=== PATIENT | female | born 1955 | race Caucasian/White ===

== ENCOUNTER 2017-04-20 13:24 | Inpatient (IN) | payer MEDICAID ==
[~2017-04-20] VITALS: Ht 172.7 cm; Wt 99.8 kg
--- NOTE | ~2017-04-20 | OR ---
PATIENT'S NAME: ADITI PRICE [facility] AGE: 62 Y [address] ROOM: [place] [address] LOCATION: GICU ADMIT DATE: 04/20/2017 OR/Procedure Report DISCHARGE DATE: FAMILY PHYSICIAN: PHYSICIAN, UNKNOWN ATTENDING PHYSICIAN: Matt Quezada SURGEON: Dylon Bello MD UTILIZATION REVIEW COORDINATOR: DATE OF PROCEDURE: 04/20/2017 PREOPERATIVE DIAGNOSIS: Severe head injury along with a small left acute subdural hematoma. POSTOPERATIVE DIAGNOSIS: Severe head injury along with a small left acute subdural hematoma. OPERATION PROPOSED AND PERFORMED: 1. Left frontal ventriculostomy with ICP monitoring. 2. Suturing of right posterior parietal laceration. DESCRIPTION OF PROCEDURE: Under general anesthesia, the left frontal region was shaved, prepped, and draped in the usual fashion. A linear incision was then carried out about 3 fingerbreadths from the midline just anterior to the coronal sutures. Pericranium was reflected. A small self-retaining retractor was then used for retraction. A twist-drill hole was then carried out at this site. Next, a Co-Workman ICP monitor with a ventricular catheter was then passed through a separate stab wound to the incision we had made and the ventricular catheter was then passed into the lateral ventricle and the initial pressure was between 6 to 9 cm of water. The wound was irrigated with bacitracin irrigation and the linear incision was closed in a single layer and the catheter was kept in position by using a 3-0 Nurolon and using it to twirl it around the catheter and back to the scalp. After this was done, we then directed our attention to the ragged-edged complex laceration of the scalp. This laceration was about 1 inch long. The area was cleaned, irrigated with bacitracin irrigation, and we removed the subgaleal hematoma that was present. After this was done, we then sutured the laceration using 3-0 Nurolon. The patient tolerated the procedure well and was taken back to the intensive care unit. DYLON BELLO MD AEB/modl PATIENT'S NAME: ADITI PRICE [facility] AGE: 62 Y [address] ROOM: [place] [address] LOCATION: GICU ADMIT DATE: 04/20/2017 OR/Procedure Report DISCHARGE DATE: FAMILY PHYSICIAN: PHYSICIAN, UNKNOWN ATTENDING PHYSICIAN: Matt Quezada /[id number] d: 04/21/17 0154 t: 05/03/17 1613, OPERATIVE SUMMARY
--- NOTE | ~2017-04-20 | CON ---
PATIENT'S NAME: ADITI PRICE [facility] AGE: 62 Y [address] ROOM: [place] [address] LOCATION: [facility] ADMIT DATE: 04/20/2017 Consultation DISCHARGE DATE: FAMILY PHYSICIAN: PATRICIA ESQUIVEL MD ATTENDING PHYSICIAN: Matt Quezada REFERRING PHYSICIAN: Laure Zamora MD CHIEF COMPLAINT: Subdural hematoma. HISTORY OF PRESENT ILLNESS: The patient is a 62-year-old female with history of COPD, hypertension, stroke, and cerebral aneurysm bleed, status post clipping with residual right- sided deficit, who presents here with fall and subdural hematoma and GCS of 8. The patient was initially admitted in ICU, intubated, and had left frontal ventriculostomy with ICP monitoring. The patient was subsequently extubated and now in stable condition. The patient has baseline aphasia and apraxia. Most of the story was gathered from chart and the patient's daughter. According to the patient's daughter, the patient has had aneurysm bleed in 2009 with residual right-sided deficit and hydrocephalus, status post FILLER IN shunt placement. The patient also has a history of multiple CVAs. According to daughter, the patient is aphasic and apraxic. The patient was able to walk baseline before she came here. The patient had a fall and was found to be unresponsive and was brought here and was found to have a GCS of 8 and left subdural hematoma. The patient is currently stable and is being transferred out of ICU to NTU. Left frontal ventriculostomy with ICP monitoring has been removed. MEDICAL HISTORY: 1. Ruptured aneurysm with clipping. 2. Hypertension. 3. CVA. SURGICAL HISTORY: FILLER IN shunt placement. FAMILY HISTORY: Brother has leukemia. SOCIAL HISTORY: The patient was a former smoker. The patient lives with a caregiver, who is her daughter. MEDICATIONS: Please see MAR. PATIENT'S NAME: ADITI PRICE [facility] AGE: 62 Y [address] ROOM: [place] [address] LOCATION: [facility] ADMIT DATE: 04/20/2017 Consultation DISCHARGE DATE: FAMILY PHYSICIAN: PATRICIA ESQUIVEL MD ATTENDING PHYSICIAN: Matt Quezada REVIEW OF SYSTEMS: Unobtainable due to the patient's mentation. PHYSICAL EXAMINATION: VITAL SIGNS: Temperature 97.7, blood pressure 159/72, heart rate 99, respiratory rate 20, and saturating 95% on room air. GENERAL APPEARANCE: The patient is lying on bed and being fed food by daughter. HEENT: Head: Surgical sutures present. Clean, dry, and intact. Eyes: No eye discharge. External ocular muscles intact. Nose: No nasal discharge. Mouth: Moist oral mucosa. Ears: No ear discharge. CHEST: Clear to auscultation bilaterally. No rhonchi, wheezing, and rales. HEART: Regular rate and rhythm. No murmurs, rubs, or gallops. ABDOMEN: Soft, nontender, and nondistended. Bowel sounds present. SKIN: Warm to touch. COMPOSITION BOARD PRESS OPERATOR: The patient is alert and awake. However, the patient is aphasic with right-sided weakness. The patient is able to move left side. MUSCULOSKELETAL: No obvious effusion was noted. DATA: Hemoglobin of 12.3, white blood cell count was 6.3, and platelet of 225. Creatinine of 0.7, BUN of 5, sodium 140, and potassium of 4. ASSESSMENT AND PLAN: 1. Chronic obstructive pulmonary disease, stable. Continue bronchodilator. 2. Hypertension. Stable. Continue current medication with Bumex and QAMARKER] p.r.n. We will follow blood pressure closely. 3. Subdural hematoma, stable. Treatment per primary team. 4. History of cerebrovascular accident. The patient currently is not on statin or aspirin. Aspirin is held due to bleeding. I will add Lipitor on her home medication list. The patient might benefit from aspirin if bleeding risk is low. 5. Physical deconditioning. PT/OT, then hopefully to be discharged to our acute rehab when the patient is ready. Greater than 30 minutes was spent on patient care. Thank you very much for involving us in the patient's care. ISHMAEL GARCIA MD PATIENT'S NAME: ADITI PRICE [facility] AGE: 62 Y [address] ROOM: [place] [address] LOCATION: [facility] ADMIT DATE: 04/20/2017 Consultation DISCHARGE DATE: FAMILY PHYSICIAN: PATRICIA ESQUIVEL MD ATTENDING PHYSICIAN: Matt Quezada/marc /[id number] d: 04/24/17 0039 t: 04/24/17 1545, CONSULTATION REPORT
--- NOTE | ~2017-04-20 | HP ---
PATIENT'S NAME: ADITI PRICE [facility] AGE: 62 Y [address] ROOM: [id number] [place], [place] [address] LOCATION: [facility] ADMIT DATE: 04/20/2017 History & Physical DISCHARGE DATE: FAMILY PHYSICIAN: PHYSICIAN, UNKNOWN ATTENDING PHYSICIAN: Matt Quezada DATE OF SERVICE: CHIEF COMPLAINT: Altered mental status from fall. HISTORY OF PRESENT ILLNESS: The patient is a 62-year-old female, who arrived by helicopter as a code trauma. She apparently was standing when she fell backwards and struck the back of her head. The reports were that she was unresponsive. There was some mention of a GCS of 8, though we did not have any details regarding that. She was intubated at an outside hospital, and then flown by helicopter here. The patient was unresponsive during transport, but did receive paralytics as well as Versed and fentanyl. She had a known history of a TEACHING FELLOW shunt, and has had a previous stroke. No other past medical history was obtainable. On arrival here, the patient was unresponsive and intubated. No movement was noted. REVIEW OF SYSTEMS: Unobtainable. PHYSICAL EXAMINATION: VITAL SIGNS: Blood pressure was 167/102, pulse was 84, she is being bag ventilated, and her sats are 98%. HEENT: Pupils are 4 mm, equal, and sluggishly reactive. There was no conjunctival injury or periorbital edema. There were no signs of midface trauma. Nose was straight without septal hematoma. The oropharynx has an endotracheal and orogastric tube in place. Mandible does not show any evidence of injury. External ears are unremarkable. Ear canals are clear bilaterally. There was no hemotympani. There was a 3-cm hematoma on the right posterior scalp, was boggy underneath this from blood. There was some skin trauma, but is more of a crush/abrasion type injury than a true laceration. There was some bleeding from it. There was some surrounding abrasion. Her TEACHING FELLOW shunt is palpable in the subcutaneous tissue. NECK: There is a cervical collar in place. The trachea was midline. There were no palpable step-offs. There was no obvious neck injury. CHEST: Lungs are clear to auscultation. There is no crepitus or rib fractures. There was some superficial abrasion to the right posterior shoulder. HEART: Regular rate and rhythm. There are no obvious peripheral signs of chest trauma otherwise. PATIENT'S NAME: ADITI PRICE [facility] AGE: 62 Y [address] ROOM: [address] [place] [id number] LOCATION: [facility] ADMIT DATE: 04/20/2017 History & Physical DISCHARGE DATE: FAMILY PHYSICIAN: PHYSICIAN, UNKNOWN ATTENDING PHYSICIAN: Matt Quezada ABDOMEN: Soft. There are some well-healed incisions, but no signs of acute injury. There are good bowel sounds. It is not distended. There is no bruising. PELVIS: Stable. Femoral pulses are weakly palpable. GENITOURINARY: External female genitalia were unremarkable. Urine is grossly clear. MUSCULOSKELETAL: Upper and lower extremities, the patient has weakly palpable distal pulses. There was no swelling. There was no evidence of fracture or deformity. No lacerations or abrasions or bruising was noted. DIAGNOSTIC STUDIES: The patient remained stable during our evaluation. She was taken to CT scan, where she was noted to have markedly enlarged ventricles, as well as significant old stroke and changes related to this. ASSESSMENT AND PLAN: A 62-year-old female with history of stroke and TEACHING FELLOW shunt placed now with significantly altered mental status following a fall. She is unresponsive at this point. Dr. Zamora has been consulted. I see no signs of other obvious injuries. We will proceed based on Dr. Zamora's recommendations. We were with the patient for approximately 1 hour in continual contact until she was taken to the Operating Room. MD SHIVA MARTINEZ/marc /[id number] D: 328 T: 004 HISTORY & PHYSICAL
--- NOTE | ~2017-04-20 | CON ---
PATIENT'S NAME: ADITI PRICE [facility] AGE: 62 Y [address] ROOM: [place] [address] LOCATION: GICU ADMIT DATE: 04/20/2017 Consultation DISCHARGE DATE: FAMILY PHYSICIAN: PATRICIA ESQUIVEL MD ATTENDING PHYSICIAN: Matt Quezada REFERRING PHYSICIAN: Laure Zamora MD A consult for Laure Zamora MD. HISTORY OF PRESENT ILLNESS: This is a 62-year-old lady, who is referred to rehab evaluation. She is status post intracranial pressure monitor placement on 04/20/2017 after she suffered severe head injury with a small left acute subdural hematoma. It was done per Dr. Pang. Details on record on 04/20/2017. The intracranial pressure monitor has been discontinued today early on. As per history, she fell backwards and struck her head and became unresponsive. She was initially at a [place] Coma Scale of 8. She has as per history per her daughter and I have nothing to confirm it that she had a clipping of the artery aneurysm done years back and she recovered well with right-sided weakness at that time. She was walking as per her daughter statement unaided, but she needs help and I do not have a clear description from the daughter how much she was requiring help. Seemingly, the daughter as per her statement she has her job. She is at the present time in ICU, able to open her eyes, responds on and off. However, she seems to be markedly obtunded. She is not attending to the right side. She has no volitional movement that I could detect in the right upper and lower extremities. She is gagging, but she is neglecting the right side quite a bit and is not attending to the right side with visual cut on the right temporal region. She is breathing on her own. PHYSICAL EXAMINATION: VITAL SIGNS: Vitals are as follows. Blood pressure 151/84, temperature 98.4, pulse 84, and respiratory rate 18. She is 5 feet and 6 inches and weighs 104.0 kg. MEDICATIONS: She is on: PATIENT'S NAME: ADITI PRICE [facility] AGE: 62 Y [address] ROOM: [place] [address] LOCATION: [facility] ADMIT DATE: 04/20/2017 Consultation DISCHARGE DATE: FAMILY PHYSICIAN: PATRICIA ESQUIVEL MD ATTENDING PHYSICIAN: Matt Quezada 1. Albuterol. 2. Zofran. 3. Neurontin. 4. Protonix. 5. Paxil. 6. Fentanyl. 7. Propofol. 8. Glucagon. 9. Dextrose. 10. Glucose. 11. Insulin regular, aggressive scale. 12. Phenylephrine. 13. Labetalol. 14. NS 0.9%. 15. KCL. 16. Tylenol. 17. Mannitol. ASSESSMENT AND PLAN: We will start on bedside PT/OT and speech. Please see the orders. We need to do a modified barium swallow for the time being to see how safe she is swallowing. I will continue to follow and I feel that she needs to be on intensive rehab for about 3 to 4 weeks, aiming to discharge on modified independence, and follow on outpatient basis. All the above was explained to the daughter. She verbalized understanding and agreement. KAREN TIWARI MD WMS/modl /[id number] d: 04/22/172122 t: 04/23/17 1241, CONSULTATION REPORT
--- NOTE | ~2017-04-20 | DS ---
PATIENT'S NAME: JESSICA PRICE [facility] AGE: 62 Y [address] ROOM: [place] [address] LOCATION: GNTU ADMIT DATE: 04/20/2017 Discharge Summary DISCHARGE DATE: 05/01/2017 FAMILY PHYSICIAN: Medhat Bishop MD ATTENDING PHYSICIAN: Matt Quezada DIAGNOSES: 1. A 62-year-old female, status post fall on stairs at home. 2. Traumatic brain injury with subdural hemorrhage. 3. History of stroke. 4. History of AIRBRUSH ARTIST shunt. SUMMARY: Jessica Price is a 62-year-old female, who arrived at [facility] as a trauma code by helicopter. The patient has a prior history of stroke which resulted in weakness. She was able to get around at home doing minimal activities. The patient was on her front steps when she fell backwards striking the back of her head. The reports were that she was unresponsive at the scene. She had a GCS of 8. She was intubated at an outside hospital and flown to [facility] via helicopter. Please see Dr. Quezada's the history and physical for specifics on evaluation. CT of the cervical spine showed no fractures. CT of the head showed a large hematoma of the right parietal scalp. Areas of bilateral chronic encephalomalacia, probably from prior infarct. No mass effect or acute ischemic infarct was noted. There was a left parietal subdural hematoma that was acute. The patient was taken to the operating room by Dr. Zamora for a left frontal ventriculostomy with ICP monitoring and suturing of a right posterior parietal laceration. The patient was then admitted to the intensive care unit under the care of Dr. Quezada. The neuro team managed her care initially. She continued to be sedated and intubated on the morning of April 21, but was subsequently extubated. PT, OT, and Speech Therapy were consulted. Dr. Irving was consulted for consideration of rehab. On April 23, the patient was transferred to the neuro trauma unit. Her [place]-J collar was removed per Dr. Zamora's order. Her ventriculostomy was discontinued. She was started on pureed diet with thin liquids. The patient was monitored for several days for oral intake. She subsequently had a PEG tube placed by Dr. Rasmussen on April 30 due to poor p.o. intake. The patient continued to work with therapies, and it was felt that the patient was ready for discharge to a swing bed on May 01. DISCHARGE INSTRUCTIONS: Include a followup CT without contrast in 2 weeks with the images to be pushed to the [facility] PAC system for Dr. Zamora to review. She will continue with diet as tolerated with Ensure 240 mL per PEG q.i.d. with 75 mL water flush before and after tube feedings. Weightbearing as tolerated. Continue PT, OT, and Speech Therapy. PATIENT'S NAME: JESSICA PRICE [facility] AGE: 62 Y [address] ROOM: [place] [address] LOCATION: [facility] ADMIT DATE: 04/20/2017 Discharge Summary DISCHARGE DATE: 05/01/2017 FAMILY PHYSICIAN: Medhat Bishop MD ATTENDING PHYSICIAN: Matt Quezada DISCHARGE MEDICATIONS: 1. Bumex 1 mg p.o. every 48 hours. 2. Paxil 10 mg p.o. daily. 3. Amitriptyline 100 mg p.o. q.h.s. 4. Neurontin 300 mg p.o. 3 times daily. 5. Tylenol liquid 650 via PEG every 4 hours as needed. 6. Lortab elixir 5-15 mL every 4 hours as needed for pain. 7. Ativan 0.5 mg every night at bedtime for anxiety. For specifics on day-to-day care, please refer to the hospital chart. JAXSON MOTA PA-C FOR MD JOE MARTINEZ/marc /[id number] d: 05/05/17236 t: 05/05/17 0919, DISCHARGE SUMMARY
--- NOTE | ~2017-04-20 | CON ---
PATIENT'S NAME: ADITI PRICE [facility] AGE: 62 Y [address] ROOM: [id number] [place], [place] [address] LOCATION: GICU ADMIT DATE: 04/20/2017 Consultation DISCHARGE DATE: FAMILY PHYSICIAN: PHYSICIAN, UNKNOWN ATTENDING PHYSICIAN: Matt Quezada REFERRING PHYSICIAN: Laure Zamora MD HISTORY OF PRESENT ILLNESS: This 62-year-old lady was transferred here from the hospital admitted through the emergency room. She apparently fell and landed on her head, and consequent to that, she became unresponsive, and as a result, she was intubated and ventilated. 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 She had multiple strokes and had a CARPET INSPECTOR shunt put in from what I presume was hydrocephalus secondary to the subarachnoid hemorrhage. PAST MEDICAL HISTORY: Apart from what we were able to gather from the fact that we saw clips in the CT scan of the head which indicated that she had an aneurysm rupture that was clipped and the evidence of hypodense lesions in both hemispheres marked in the left hemisphere with both frontal as well as temporal and parietal occipital regions involved. There was really not much as we could get on the past medical history because there was nothing visible. SOCIAL HISTORY/REVIEW OF SYSTEMS: We could not get that because of her neurological status. PHYSICAL EXAMINATION: GENERAL: In the emergency room, she is 5 feet 8 inches tall, 111 kg in weight. Blood pressure was 150/90, the pulse was 93, respirations were 27 on the ventilator. CHEST/GI: As far as the chest and abdominal examinations are concerned, see Dr. Quezada' note. NEUROLOGICAL: She was completely unresponsive. There was no response to pain. Painful stimuli. The pupils were 3 mm . They both reacted sluggishly to light. HENT: She had a laceration in the posterior parietal region with underlying subgaleal hematoma and shunt pumps and feels adequately. IMAGING DATA: I did review the CT scan of the brain. The CT scan of the brain showed area of low density involving the left hemisphere with accompanying asymmetric dilatation of the ventricle on that left side which was much bigger, much larger than the ventricle on the right. In addition, there was a low-density area in the right frontal region, and there was definite ventriculomegaly with PATIENT'S NAME: ADITI PRICE [facility] AGE: 62 Y [address] ROOM: [id number] [place], [place] [address] LOCATION: [facility] ADMIT DATE: 04/20/2017 Consultation DISCHARGE DATE: FAMILY PHYSICIAN: PHYSICIAN, UNKNOWN ATTENDING PHYSICIAN: Matt Quezada prominent subarachnoid spaces. In addition, however, she had a small acute subdural hematoma in the left posterior parietal region without any significant mass effect. She also had a CT scan of the cervical spine that did not show any fractures. She had a CT scan of the lumbar spine. CT scan of the chest, abdomen, and pelvis did not show any abnormality. IMPRESSION: Severe head injury. The original [employer] coma score was put at 8, and in light of nonresponsive to painful stimuli, which could be secondary to residual effect of the that she had, I feel that to go ahead and put in a pressure monitor intra-ventricle, and take it from there. Postop, we will hold off sedation and see especially the ICP stays within the normal range with eventually aim of extubating her. In the meantime, we will go ahead and treat as a severe head injury. MD FERNANDEZ WANG/marc /[id number] d: 04/21/17 0142 t: 05/03/17 1610, CONSULTATION REPORT
--- NOTE | ~2017-04-20 | OR ---
PATIENT'S NAME: ADITI PRICE [facility] AGE: 62 Y [address] ROOM: [address] [address] LOCATION: [facility] ADMIT DATE: 04/20/2017 OR/Procedure Report DISCHARGE DATE: FAMILY PHYSICIAN: PATRICIA ESQUIVEL MD ATTENDING PHYSICIAN: Matt Quezada SURGEON: Matt Quezada MD BREWERY CELLAR WORKER: DATE OF PROCEDURE: 04/30/2017 PREOPERATIVE DIAGNOSIS: Altered mental status with inadequate oral intake. POSTOPERATIVE DIAGNOSIS: Altered mental status with inadequate oral intake. PROCEDURE PERFORMED: EGD with PEG placement. ANESTHESIA: MAC with local. SPECIMEN: None. REASON FOR PROCEDURE: The patient is a 62-year-old female, who has a previous history of significant stroke, recently she fell, and had a closed head injury. She has had altered mental status and her swallowing has not been great, she is taking some orally but not enough to maintain hydration or nutritional support. It was decided to proceed with PEG placement. PROCEDURE IN DETAIL: The patient was taken to the endoscopy suite and placed in a supine position with the head elevated slightly. Anesthesia provided sedation. A bite block was placed between her teeth. The gastroscope was advanced through the bite block and the esophagus was intubated under direct visualization. The esophagus was not dilated. There was no strictures or masses. The stomach and duodenum were normal. Transillumination and pressure on the abdominal wall were used to localize an area for PEG placement. This was then prepped with ChloraPrep and sterilely draped. Lidocaine was infiltrated into the area. A small stab incision was made. This was essentially in the previous scar from her last PEG placement. A needle was then advanced through the abdominal wall and visualized entering the gastric mucosa. A guidewire was advanced through the needle. The guidewire was grasped with a snare and carefully withdrawn through the esophagus and oropharynx. The PEG tube was advanced over the guidewire and pulled into position. A bolster was used to hold this in place. POSTPROCEDURE PLAN: The patient will be sent to recovery and then back to her room. We will start tube feeds later today. She can resume her previous diet. PATIENT'S NAME: ADITI PRICE [facility] AGE: 62 Y [address] ROOM: [address] [address] LOCATION: [facility] ADMIT DATE: 04/20/2017 OR/Procedure Report DISCHARGE DATE: FAMILY PHYSICIAN: PATRICIA ESQUIVEL MD ATTENDING PHYSICIAN: Matt Quezada MD SHIVA MARTINEZ/modl /[id number] d: 04/30/17926 t: 05/04/17 1400, OPERATIVE SUMMARY
[2017-04-20 14:10] LABS: BICARBONATE 22.9 mmol/L (18.0-23.0); PCO2 48 mmHg (35-45); PO2 230 mmHg (80-90); SODIUM 141 mEq/L (135-145)
[2017-04-20 14:18] LABS: BILIRUBIN URINE NEGATIVE (NEGATIVE); BLOOD URINE 10 /UL (NEGATIVE); GLUCOSE URINE NEGATIVE (NEGATIVE); KETONE URINE NEGATIVE (NEGATIVE); LEUKOCYTES URINE NEGATIVE /UL (NEGATIVE); NITRITE URINE NEGATIVE (NEGATIVE); PROTEIN URINE NEGATIVE (NEGATIVE); SPEC GRAVITY URINE 1.015 (1.003-1.035); UROBILINOGEN URINE NORMAL (NORMAL)
[2017-04-20 14:20] LABS: BASOPHIL % 0.3 %; EOSINOPHIL # 0.1 K/uL (0.0-0.5); EOSINOPHIL % 0.8 %; HEMATOCRIT 43.7 % (33.0-46.0); HEMOGLOBIN 14.4 g/dL (10.0-15.0); IMMATURE GRANULOCYTE # 0.1 K/uL (0.0-0.3); IMMATURE GRANULOCYTE % 0.7 %; LYMPHOCYTE # 1.4 K/uL (0.8-4.0); LYMPHOCYTE % 11.6 %; MCH 32.5 pg (27.0-34.0); MCV 98.6 fl (83.0-98.0); MONOCYTE # 0.5 K/uL (0.0-1.0); MPV 9.6 fl (9.4-12.4); NEUTROPHIL # (ANC) 9.7 K/uL (1.8-7.8); NEUTROPHIL % 82.6 %; NRBC % 0 /100WBC (0-0.00); PLATELET COUNT 256 K/uL (150-450); RBC 4.43 M/uL (3.50-5.50); RDW-CV 12.4 % (11.9-14.6); WBC 11.7 K/uL (4.0-11.0)
[2017-04-20 14:23] LABS: COLOR URINE STRAW (YELLOW); TURBIDITY URINE CLEAR (CLEAR)
[2017-04-20 14:28] LABS: BACTERIA URINE NEGATIVE (NEGATIVE); RBC URINE 0-2 #/HPF (NEGATIVE); WBC URINE NEGATIVE #/HPF (NEGATIVE)
[2017-04-20 14:32] LABS: INR - (THERAPEUTIC) 1.03 (0.92-1.07); PROTIME 10.8 SECONDS (9.8-11.4); PTT 28 SECONDS (25-32)
[2017-04-20 14:34] LABS: BLOOD UREA NITROGEN 13 mg/dL (6-24); CHLORIDE 110 mMol/L (96-110); ESTIMATED GFR (MDRD EQUATION) 56
[2017-04-20 17:32] LABS: BICARBONATE 22.2 mmol/L (18.0-23.0); PCO2 43 mmHg (35-45); PO2 109 mmHg (80-90)
[2017-04-20] MEDS ORDERED: NEURONTIN300 MG PO (19:23)
[2017-04-20] MEDS ORDERED: BUMEX1 MG PO (19:23)
[2017-04-20] MEDS ORDERED: LEVAQUIN 750 M750 MG PO (19:24)
[2017-04-20] MEDS ORDERED: NORCO 7.5-3251 EACH PO (19:24)
[2017-04-20] MEDS ORDERED: PAXIL10 MG PO (19:25)
[2017-04-20] MEDS ORDERED: ATIVAN 0.5MG0.5 MG PO (19:25)
[2017-04-20] MEDS ORDERED: AMITRIPTYLINE100 MG PO (19:25)
[2017-04-21 04:59] LABS: LACTATE 1.3 mEq/L (0.50-1.60); PCO2 42 mmHg (35-45); PO2 96 mmHg (80-90)
[2017-04-21 05:19] LABS: INR - (THERAPEUTIC) 1.01 (0.92-1.07); PROTIME 10.6 SECONDS (9.8-11.4)
[2017-04-21 05:27] LABS: ALBUMIN 3.1 gm/dL (3.5-5.0); ALK PHOS 68 IU/L (33-138); ALT 32 IU/L (12-78); ANION GAP 12.9 (10.0-19.0); AST 19 IU/L (10-40); BLOOD UREA NITROGEN 8 mg/dL (6-24); CALCIUM 7.3 mg/dL (8.5-10.5); CHLORIDE 112 mMol/L (96-110); CO2 23 mMol/L (22-32); CREATININE 0.8 mg/dL (0.5-1.1); ESTIMATED GFR (MDRD EQUATION) > 60; POTASSIUM 3.9 mMol/L (3.7-5.1); SODIUM 144 mMol/L (135-145); TOTAL BILIRUBIN 0.8 mg/dL (0.0-1.5); TOTAL PROTEIN 6.2 g/dL (6.0-8.4)
[2017-04-21 05:30] LABS: BASOPHIL % 0.3 %; EOSINOPHIL # 0.1 K/uL (0.0-0.5); EOSINOPHIL % 0.7 %; HEMATOCRIT 37.5 % (33.0-46.0); HEMOGLOBIN 12.6 g/dL (10.0-15.0); IMMATURE GRANULOCYTE % 0.4 %; LYMPHOCYTE # 1.8 K/uL (0.8-4.0); LYMPHOCYTE % 23.3 %; MCH 32.6 pg (27.0-34.0); MCHC 33.6 gm/dL (32.0-36.5); MCV 97.2 fl (83.0-98.0); MONOCYTE # 0.7 K/uL (0.0-1.0); MONOCYTE % 8.6 %; MPV 9.9 fl (9.4-12.4); NEUTROPHIL # (ANC) 5.1 K/uL (1.8-7.8); NEUTROPHIL % 66.7 %; NRBC % 0 /100WBC (0-0.00); PLATELET COUNT 252 K/uL (150-450); RBC 3.86 M/uL (3.50-5.50); RDW-CV 12.5 % (11.9-14.6); WBC 7.6 K/uL (4.0-11.0)
[2017-04-21 05:42] LABS: CPK 118 IU/L (21-215)
[2017-04-22 05:10] LABS: ALBUMIN 3.1 gm/dL (3.5-5.0); ALK PHOS 70 IU/L (33-138); ALT 30 IU/L (12-78); AST 16 IU/L (10-40); BLOOD UREA NITROGEN 5 mg/dL (6-24); CALCIUM 7.7 mg/dL (8.5-10.5); CHLORIDE 115 mMol/L (96-110); CO2 25 mMol/L (22-32); CREATININE 0.7 mg/dL (0.5-1.1); ESTIMATED GFR (MDRD EQUATION) > 60; TOTAL PROTEIN 6.3 g/dL (6.0-8.4)
[2017-04-22 05:13] LABS: SODIUM 146 mMol/L (135-145)
[2017-04-22 05:16] LABS: BASOPHIL % 0.5 %; EOSINOPHIL # 0.3 K/uL (0.0-0.5); HEMATOCRIT 37.7 % (33.0-46.0); HEMOGLOBIN 12.3 g/dL (10.0-15.0); IMMATURE GRANULOCYTE % 0.6 %; LYMPHOCYTE # 1.4 K/uL (0.8-4.0); LYMPHOCYTE % 22.8 %; MCH 32.6 pg (27.0-34.0); MCHC 32.6 gm/dL (32.0-36.5); MONOCYTE # 0.5 K/uL (0.0-1.0); MONOCYTE % 7.9 %; MPV 9.7 fl (9.4-12.4); NEUTROPHIL # (ANC) 4.1 K/uL (1.8-7.8); NEUTROPHIL % 64.2 %; NRBC % 0 /100WBC (0-0.00); PLATELET COUNT 220 K/uL (150-450); RBC 3.77 M/uL (3.50-5.50); RDW-CV 12.6 % (11.9-14.6); WBC 6.3 K/uL (4.0-11.0)
[2017-04-24 07:09] LABS: BASOPHIL % 0.5 %; EOSINOPHIL # 0.3 K/uL (0.0-0.5); EOSINOPHIL % 4.6 %; HEMATOCRIT 38.6 % (33.0-46.0); HEMOGLOBIN 12.9 g/dL (10.0-15.0); IMMATURE GRANULOCYTE % 0.6 %; LYMPHOCYTE # 1.8 K/uL (0.8-4.0); LYMPHOCYTE % 29.3 %; MCH 32.7 pg (27.0-34.0); MCHC 33.4 gm/dL (32.0-36.5); MONOCYTE # 0.5 K/uL (0.0-1.0); MONOCYTE % 7.5 %; MPV 9.5 fl (9.4-12.4); NEUTROPHIL # (ANC) 3.6 K/uL (1.8-7.8); NEUTROPHIL % 57.5 %; NRBC % 0 /100WBC (0-0.00); PLATELET COUNT 252 K/uL (150-450); RBC 3.94 M/uL (3.50-5.50); RDW-CV 12.6 % (11.9-14.6); WBC 6.3 K/uL (4.0-11.0)
[2017-04-24 07:23] LABS: ALBUMIN 3.3 gm/dL (3.5-5.0); ALK PHOS 72 IU/L (33-138); ALT 34 IU/L (12-78); ANION GAP 15.5 (10.0-19.0); AST 19 IU/L (10-40); BLOOD UREA NITROGEN 8 mg/dL (6-24); CALCIUM 8.5 mg/dL (8.5-10.5); CHLORIDE 110 mMol/L (96-110); CO2 25 mMol/L (22-32); CREATININE 0.8 mg/dL (0.5-1.1); ESTIMATED GFR (MDRD EQUATION) > 60; POTASSIUM 3.5 mMol/L (3.7-5.1); TOTAL PROTEIN 6.7 g/dL (6.0-8.4)
[2017-04-24 07:25] LABS: SODIUM 147 mMol/L (135-145)
[2017-04-25 03:35] LABS: ANION GAP 11.6 (10.0-19.0); CALCIUM 8.8 mg/dL (8.5-10.5); POTASSIUM 3.6 mMol/L (3.7-5.1)
[2017-04-27 05:14] LABS: BLOOD URINE 10 /UL (NEGATIVE); COLOR URINE YELLOW (YELLOW); GLUCOSE URINE NEGATIVE (NEGATIVE); KETONE URINE NEGATIVE (NEGATIVE); LEUKOCYTES URINE 25 /UL (NEGATIVE); NITRITE URINE NEGATIVE (NEGATIVE); PROTEIN URINE 30 mg/dL (NEGATIVE); UROBILINOGEN URINE 4 mg/dL (NORMAL)
[2017-04-27 05:19] LABS: TURBIDITY URINE 2+ (CLEAR)
[2017-04-27 05:35] LABS: EPITHELIAL URINE 0-2 #/HPF (NEGATIVE); RBC URINE 0-2 #/HPF (NEGATIVE)
[2017-04-27 05:36] LABS: BACTERIA URINE MANY (NEGATIVE); MUCUS URINE 3+ (NEGATIVE)
[2017-04-27 06:03] LABS: BASOPHIL # 0.1 K/uL (0.0-0.2); BASOPHIL % 0.7 %; EOSINOPHIL # 0.3 K/uL (0.0-0.5); EOSINOPHIL % 3.5 %; HEMOGLOBIN 14.1 g/dL (10.0-15.0); IMMATURE GRANULOCYTE % 0.4 %; LYMPHOCYTE # 2.2 K/uL (0.8-4.0); MCH 32.8 pg (27.0-34.0); MCHC 32.8 gm/dL (32.0-36.5); MONOCYTE # 0.8 K/uL (0.0-1.0); MONOCYTE % 10.3 %; MPV 9.9 fl (9.4-12.4); NEUTROPHIL # (ANC) 4.1 K/uL (1.8-7.8); NEUTROPHIL % 55.1 %; NRBC % 0 /100WBC (0-0.00); PLATELET COUNT 248 K/uL (150-450); RDW-CV 12.6 % (11.9-14.6); WBC 7.4 K/uL (4.0-11.0)
[2017-04-27 06:20] LABS: ANION GAP 12.8 (10.0-19.0); CALCIUM 8.9 mg/dL (8.5-10.5); CREATININE 1.1 mg/dL (0.5-1.1); POTASSIUM 3.8 mMol/L (3.7-5.1)
[2017-04-28 16:17] LABS: ALBUMIN 3.4 gm/dL (3.5-5.0); ANION GAP 13.1 (10.0-19.0); BLOOD UREA NITROGEN 13 mg/dL (6-24); CALCIUM 8.4 mg/dL (8.5-10.5); CHLORIDE 110 mMol/L (96-110); CO2 25 mMol/L (22-32); CREATININE 0.9 mg/dL (0.5-1.1); MAGNESIUM 2.2 mg/dL (1.8-2.6); PHOSPHORUS 2.5 mg/dL (2.5-4.9); POTASSIUM 4.1 mMol/L (3.7-5.1); SODIUM 144 mMol/L (135-145)
[2017-04-28 16:18] LABS: ESTIMATED GFR (MDRD EQUATION) > 60
[2017-05-01 04:35] LABS: BASOPHIL % 0.7 %; EOSINOPHIL # 0.2 K/uL (0.0-0.5); HEMATOCRIT 39.6 % (33.0-46.0); IMMATURE GRANULOCYTE # 0.1 K/uL (0.0-0.3); IMMATURE GRANULOCYTE % 0.8 %; LYMPHOCYTE % 33.6 %; MCH 32.4 pg (27.0-34.0); MCHC 32.8 gm/dL (32.0-36.5); MCV 98.8 fl (83.0-98.0); MONOCYTE # 0.6 K/uL (0.0-1.0); MONOCYTE % 9.8 %; MPV 10.2 fl (9.4-12.4); NEUTROPHIL # (ANC) 3.1 K/uL (1.8-7.8); NEUTROPHIL % 51.1 %; NRBC % 0 /100WBC (0-0.00); RBC 4.01 M/uL (3.50-5.50); RDW-CV 12.2 % (11.9-14.6)
[2017-05-01 04:41] LABS: PLATELET COUNT 197 K/uL (150-450)
[2017-05-01 04:50] LABS: ALBUMIN 3.1 gm/dL (3.5-5.0); ANION GAP 9.9 (10.0-19.0); BLOOD UREA NITROGEN 10 mg/dL (6-24); CALCIUM 8.4 mg/dL (8.5-10.5); CHLORIDE 110 mMol/L (96-110); CO2 27 mMol/L (22-32); CREATININE 0.9 mg/dL (0.5-1.1); ESTIMATED GFR (MDRD EQUATION) > 60; MAGNESIUM 2.1 mg/dL (1.8-2.6); PHOSPHORUS 3.5 mg/dL (2.5-4.9); POTASSIUM 3.9 mMol/L (3.7-5.1); SODIUM 143 mMol/L (135-145)
== END 2017-05-01 13:42 | disposition swing bed (61) | DRG 25 ==
LOC: GACC 13:24 → GICU 14:30 → GNTU 14:30 → GICU 04-23 10:56 → GNTU 04-23 18:05
PROVIDERS: Anesthesiology; Family Medicine; Nurse Practitioner Family; Physician Assistant; ADMIT Surgery
PROC: 00163JB Bypass Cerebral Ventricle to Cerebral Cisterns with Synthetic Substitute, Percutaneous Approach (ICD-10-PCS; principal; 2017-04-20)
PROC: 0HQ0XZZ Repair Scalp Skin, External Approach (ICD-10-PCS; principal; 2017-04-20)
PROC: 0DH63UZ Insertion of Feeding Device into Stomach, Percutaneous Approach (ICD-10-PCS; 2017-04-30)
DX: S06.5X9A Traumatic subdural hemorrhage with loss of consciousness of unspecified duration, initial encounter (principal); G93.40 Encephalopathy, unspecified; J96.90 Respiratory failure, unspecified, unspecified whether with hypoxia or hypercapnia; I10 Essential (primary) hypertension; J44.9 Chronic obstructive pulmonary disease, unspecified; R40.2430 Glasgow coma scale score 3-8, unspecified time; S06.9X9A Unspecified intracranial injury with loss of consciousness of unspecified duration, initial encounter; W19.XXXA Unspecified fall, initial encounter; Z86.73 Personal history of transient ischemic attack (TIA), and cerebral infarction without residual deficits
CPT/HCPCS: C9113; G0390; G0480; J0131; J0690; J2704; J3010; J3480; J7030; J7050

== ENCOUNTER → 2017-05-01 | Outpatient (CLI) | payer MEDICAID ==
[~2017-05-01] MED LIST: AMITRIPTYLINE100 MG PO; ATIVAN 0.5MG0.5 MG PO; BUMEX1 MG PO; LEVAQUIN 750 M750 MG PO; NEURONTIN300 MG PO; NORCO 7.5-3251 EACH PO; PAXIL10 MG PO
== END | disposition disaster alternative care site (69) ==
LOC: GAMB 12:59
DX: R41.82 Altered mental status, unspecified (principal); I62.00 Nontraumatic subdural hemorrhage, unspecified; I63.9 Cerebral infarction, unspecified; I10 Essential (primary) hypertension; M79.7 Fibromyalgia; M54.9 Dorsalgia, unspecified; G89.29 Other chronic pain; R45.1 Restlessness and agitation; R47.02 Dysphasia; Z96.0 Presence of urogenital implants; Z79.899 Other long term (current) drug therapy; Z79.891 Long term (current) use of opiate analgesic; Z88.8 Allergy status to other drugs, medicaments and biological substances; Z88.5 Allergy status to narcotic agent; Z96.89 Presence of other specified functional implants
CPT/HCPCS: A0425; A0426